=== PATIENT | female | born 1995 | race Caucasian/White ===

== ENCOUNTER 2017-09-08 13:45 | Emergency (ER) | payer SELFPAY ==
[~2017-09-08] VITALS: Ht 165.1 cm; Wt 93.0 kg
[2017-09-08] MEDS ORDERED: TDAP DIPH,PERTUSS,TET VAC/PF 0.5 ML DISP.SYRIN IM ONE ×2 (15:30→16:40)
[2017-09-08] MEDS ORDERED: LIDOCAINE HCL 1% 20 ML VIAL IJ ONE (15:30)
--- NOTE | 2017-09-08 16:53 | NUR ---
PT WAS EVALUATED BY DR CASTELLANOS. PT TOLERATED TO MEDICATION AND PROCEDURES WITHOUT COMPLICATIONS. PT WAS D/C TO HOME. D/C INSTRUCTIONS GIVEN TO THE PT.
[2017-09-08 16:56] VITALS: BP 131/68
== END 2017-09-08 16:57 | disposition home or self-care (01) ==
LOC: ER 13:45
DX: S61.211A Laceration without foreign body of left index finger without damage to nail, initial encounter (principal); W26.0XXA Contact with knife, initial encounter; Y93.89 Activity, other specified; Y92.89 Other specified places as the place of occurrence of the external cause; Y99.8 Other external cause status; Z88.0 Allergy status to penicillin
CPT/HCPCS: 12001; 90471; 90715; 99283; A4663; J3490

== ENCOUNTER 2017-10-11 15:15 | Emergency (ER) | payer OTHER ==
[~2017-10-11] VITALS: Ht 165.1 cm; Wt 93.0 kg
[2017-10-11] MEDS ORDERED: IBUPROFEN 600 MG TABLET PO ONE ×2 (17:21→17:27)
[2017-10-11] MEDS ORDERED: AZITHROMYCIN 250 MG TABLET PO ONE ×2 (17:21→17:30)
[2017-10-11] MEDS ORDERED: IBUPROFEN 600 MG TABLET ONE (17:29)
[2017-10-11] MEDS ORDERED: AZITHROMYCIN 250 MG TABLET ONE (17:29)
--- NOTE | 2017-10-11 17:32 | NUR ---
Patient discharged to home in stable conditon. Written and verbal after care instructions given to patient. Patient verbalizes understanding of instructions.
== END 2017-10-11 17:34 | disposition home or self-care (01) ==
LOC: ER 15:16
DX: J40 Bronchitis, not specified as acute or chronic (principal); H66.92 Otitis media, unspecified, left ear; Z88.0 Allergy status to penicillin
CPT/HCPCS: 71045; A4663; Q0144

== ENCOUNTER 2017-10-21 09:30 | Emergency (ER) | payer OTHER ==
[~2017-10-21] VITALS: Ht 162.6 cm; Wt 79.4 kg
[2017-10-21] MEDS ORDERED: predniSONE 50 MG TABLET ONE (09:56)
--- NOTE | 2017-10-21 09:56 | NUR ---
Patient discharged to home in stable conditon. Written and verbal after care instructions given. Patient verbalizes understanding of instructions.
[2017-10-21] MEDS ORDERED: predniSONE 50 MG TABLET PO ONE (10:00)
== END 2017-10-21 09:56 | disposition home or self-care (01) ==
LOC: ER 09:30
DX: J45.909 Unspecified asthma, uncomplicated (principal); Z88.0 Allergy status to penicillin
CPT/HCPCS: A4663; J7512